=== PATIENT | male | born 1940 | race Caucasian/White ===

== ENCOUNTER 2017-06-06 14:59 | Outpatient (CLI) | payer MEDICARE ==
--- NOTE | 2017-06-06 16:52 | RAD ---
FIVE VIEWS CERVICAL SPINE: History: Headache at the base of skull. Abnormal growth around C1-2. Comparison: None. FINDINGS: AP cervical spine radiograph demonstrates extensive hypertrophy and degenerative change of the facets . No malalignment. Suboptimal evaluation of the odontoid process on the open mouth projection. Adequa te alignment of the lateral masses of C1 and C2. In the neutral position, the entire cervical spine a nd the cervicothoracic junction are adequately demonstrated. There is multilevel degenerative disc di sease with loss of disc space height and osteophyte formation at C5-6, C6-7 and C7-T1. Mild degenerat raphael change at C4-5. 3.7 mm anterolisthesis of C4 upon C5. Upon flexion, there is 4 mm of anterolisthe sis of C4 upon C5. Upon extension there is 3.5 mm anterolisthesis of C4 upon C5. IMPRESSION: Degenerative changes of the cervical spine as above. POS: [id number]
== END 2017-06-06 15:00 | disposition home or self-care (01) ==
LOC: TBSIIMAG 14:59
PROVIDERS: ATTEND Neurological Surgery
DX: M47.12 Other spondylosis with myelopathy, cervical region (principal)
CPT/HCPCS: 72050

== ENCOUNTER 2018-11-05 13:45 | Outpatient (CLI) | payer MEDICARE ==
--- NOTE | 2018-11-05 14:41 | RAD ---
CERVICAL SPINE 3 VIEWS:: Date: 11/05/18 HISTORY: Neck pain. FINDINGS: Lateral views were obtained with neutral, flexion, and extension positions. Moderate to severe hypertrophic degenerative changes are seen. Loss of disc space at all levels of th e cervical spine. Mild anterolisthesis of C4 on C5. There is mild anterior wedging of the C5 and C6 v ertebra. Prominent anterior and lateral osteophytes. Posterior spondylosis is prominent at C4-5, C5- 6, and C6-7. Facet hypertrophy. No significant change in alignment with flexion or extension. IMPRESSION: Moderate to severe degenerative changes of the cervical spine as described. POS: SUZY
== END 2018-11-05 13:46 | disposition home or self-care (01) ==
LOC: TBSIIMAG 13:45
PROVIDERS: ATTEND Neurological Surgery
DX: M54.2 Cervicalgia (principal); M47.812 Spondylosis without myelopathy or radiculopathy, cervical region
CPT/HCPCS: 72040